=== PATIENT | male | born 1955 | race Caucasian/White ===

== ENCOUNTER 2017-03-20 17:34 | Emergency (ER) | payer MEDICARE, OTHER ==
[2017-03-20 17:51] LABS: HEMOGLOBIN 15.4 gm/dl (14.0-17.5); RED BLOOD COUNT 5.28 M/UL (4.20-5.50); WHITE BLOOD COUNT 11.7 K/UL (4.5-11.0)
[2017-03-20 18:15] LABS: BUN/CREATININE RATIO 14 (0-10)
== END 2017-03-20 22:45 | disposition home or self-care (01) ==
LOC: ER1 17:34
PROVIDERS: Emergency Medicine
DX: R56.9 Unspecified convulsions (principal); J44.9 Chronic obstructive pulmonary disease, unspecified; I10 Essential (primary) hypertension; F17.210 Nicotine dependence, cigarettes, uncomplicated
CPT/HCPCS: 36415; 70450; 71010; 80053; 80307; 82550; 82553; 83874; 84484; 85025; 93005; 96361; 96374; 99285; J1953